=== PATIENT | female | born 1990 | race Caucasian/White ===

== ENCOUNTER → 2024-06-15 15:45 | Outpatient (REF) | payer OTHER, SELFPAY | LOC: HWRAD 15:45 | PROVIDERS: ATTENDING PHYSICIAN Physician Assistant Surgical; FAMILY PHYSICIAN Nurse Practitioner Adult Health | DX: J45.901 Unspecified asthma with (acute) exacerbation (principal) | CPT/HCPCS: 71046 ==

== ENCOUNTER → 2024-09-13 16:25 | Outpatient (REF) | payer OTHER, SELFPAY | LOC: HWRAD 16:25 | PROVIDERS: ATTENDING PHYSICIAN Pain Medicine Interventional Pain Medicine; FAMILY PHYSICIAN Nurse Practitioner Adult Health | DX: M54.50 Low back pain, unspecified (principal); Z98.1 Arthrodesis status; M54.9 Dorsalgia, unspecified | CPT/HCPCS: 72072; 72110 ==

== ENCOUNTER 2025-01-18 23:07 | Emergency (ER) | payer OTHER, SELFPAY ==
[2025-01-18 23:16] VITALS: BP 140/92
[2025-01-19 00:37] LABS: ALT (SGPT) 14 U/L (0-35); AST (SGOT) 23 U/L (14-36); Albumin 4.4 g/dl (3.5-5.0); Alkaline Phosphatase 39 U/L (38-126); Blood Urea Nitrogen 21 mg/dl (7-17); Calcium 9.5 mg/dl (8.4-10.2); Carbon Dioxide 27 mmol/L (22-30); Chloride 105 mmol/L (98-107); Glucose 95 mg/dl (70-99); Lipase 79 U/L (23-300); Potassium 3.4 mmol/L (3.5-5.1); Sodium 136 mmol/L (135-145); Total Protein 6.9 g/dl (6.3-8.2); eGFR > 60.00
[2025-01-19 00:43] LABS: Hematocrit 35.4 % (37.0-47.0); Hemoglobin 12.2 g/dL (12.0-16.0); Mean Corp Hgb Conc. 34.5 g/dL (33.0-37.0); Mean Corpuscular Volume 80.3 fL (81.0-99.0); Nucleated Red Blood Cells % 0 %; Platelet Count 249 10^3/uL (130-400); Red Cell Dist. Width 13.2 % (11.5-14.5)
[2025-01-19] MEDS: PROTONIX IV 40 MG IV (00:43)
[2025-01-19] MEDS: ZOFRAN 4 MG IV (00:43)
[2025-01-19] MEDS: NSS 1000 IV (00:43)
[2025-01-19] MEDS: TORADOL 15 MG IV (00:43)
--- NOTE | 2025-01-19 01:07 | ED.GENMED ---
History of Present Illness
General
Chief Complaint: Abdominal Pain
Time Seen by Provider: 01/19/25 00:09
History of Present Illness
History of Present Illness:
34-year-old female without significant past medical history presenting to the emergency department for upper abdominal pain. Patient notes that symptoms started this afternoon. Reports that pain has been waxing and waning. When she got home from
work, had an intense episode of pain, took some Tums with some slight relief, however then pain returned. Has had some gastric reflux in the past, however never to this extent. Denies chest pain. Denies any significant abdominal surgeries.
Denies fever. Denies any vomiting. Denies changes in stool. Denies fever. Denies eating any unusual foods prior to episode. Denies additional acute medical complaints
Past History
Past History
ED Past Medical History: None
ED Past Surgical History: Orthopedic and Other (Right sublingual cyst removal at age 16.)
Social History
Tobacco: Non-smoker
Alcohol: Occasional
Personal: Single
Employment: Student
Family History
Family History: Other (Noncontributory)
Phy Exam
Physical Exam
Physical Exam:
General: Well-appearing, no clinical signs of dehydration, nontoxic and in no acute distress
HEENT: protecting airway
Neck: appears supple
CV: Normal heart rate, regular rhythm
Resp: No accessory muscle use, no increased work of breathing, lungs clear to auscultation bilaterally
Abd: Soft and non-distended, tenderness to epigastric and right upper quadrant area without rebound or guarding
Extremities: No deformities, no swelling, no erythema, pulses and sensation intact
Neuro: alert, no focal neurologic deficit
: deferred
Rectal: deferred
Psych: Normal affect
Skin: Intact
Course
Orders/Labs/Results
Orders:
Orders
01/18/25 23:19
IV Insert/Care/Rem.- Treatment PRN
Complete Blood Count/With Diff Urgent
Comprehensive Metabolic Panel Urgent
Lipase Urgent
Urinalysis Reflex To Culture Urgent
Date Specimen was Collected: 01/18/25
Time Specimen was Collected: 23:20
01/19/25 00:33
0.9% Sodium Chloride 1000 ml [Nss] 1,000 ml IV BOLUS
Ketorolac [Toradol] 15 mg IV NOW STA
Ondansetron Injectable [Zofran] 4 mg IV NOW STA
Pantoprazole [Protonix IV] 40 mg IV NOW STA
US Abdomen Complete/Upper Urgent
Comment:
Reason For Exam: upper abdominal pain
01/19/25 01:58
Electrocardiogram (*1) Urgent
Reason for Study: Abdominal Pain
EKG- Treatment ONCE
Abnormal Lab Results
01/19/25
00:13
Hct 35.4 L %
(37.0-47.0)
MCV 80.3 L fL
(81.0-99.0)
Absolute Monos (auto) 0.7 H 10^3/uL
(0.1-0.6)
Monocytes % 9.4 H %
(1.7-9.3)
Potassium 3.4 L mmol/L
(3.5-5.1)
BUN 21 H mg/dl
(7-17)
01/19/25 00:13
01/19/25 00:13
Vital Signs
Initial and Last Documented VS:
Initial Vital Signs
Temp Pulse Resp BP Pulse Ox
98.9 F 70 20 140/92 99
01/18/25 23:16 01/18/25 23:16 01/18/25 23:16 01/18/25 23:16 01/18/25 23:16
Last Documented Vital Signs
Temp Pulse Resp BP Pulse Ox
98.9 F 70 20 140/92 99
01/18/25 23:16 01/18/25 23:16 01/18/25 23:16 01/18/25 23:16 01/19/25 01:10
MDM/Problems Addressed
MDM/Problems Addressed:
34-year-old female without significant past medical history presenting for upper abdominal pain. Vital signs on arrival are normal.
On exam patient resting comfortably, no acute distress. Mild generalized tenderness to upper abdomen without rebound or guarding. Differential considerations include GERD versus gastritis versus cholelithiasis versus cholecystitis. Patient
without cardiac risk factors, no chest pain, without present concern for ACS. Will obtain laboratory analysis and ultrasound imaging of the upper abdomen and treat with Zofran, pantoprazole, Toradol and reassess
02:15 - Patient reports improvement of her symptoms. Ultrasound without any acute abnormality and labs are unremarkable. Normal lipase, normal liver enzymes. Continue to suspect likely gastritis as etiology of patient's symptoms. EKG obtained,
nonischemic, again without concern for ACS. Ultimately stable for discharge with outpatient follow-up. Advise bland diet until symptoms resolve. Return precautions discussed and patient verbalized understanding
*Pulse Oximetry
SaO2: 99
Oxygen Mode of Delivery: Room air
Patient hypoxic: no
*EKG
Interpreted by ED Provider?: Yes
EKG Intrepretation Date: 01/19/25
EKG Intrepretation Time: 02:20
Interpretation: normal
Heart Rate: 51
Rate: normal
Rhythm: sinus
[place]: normal axis
Interval: normal interval
QRS Pattern: normal QRS
Ischemia: no ischemia
*Critical Care Note
Total Time (30-74mins, 75-104mins- exclusive of procedures): Not Applicable
ED Attending Note
-
Portions of this chart may have been created with voice recognition software.� Occasional wrong word or��sound alike� substitutions may have occurred due to the inherent limitations of voice recognition software.
Discharge Plan
Departure
Patient Disposition: Home (Routine Discharge)
Date of Disposition: 01/19/25
Time of Disposition: 02:19
Patient with high blood pressure during this ER visit?: No
Condition: Good
Discharge Problem:
Upper abdominal pain, Gastric reflux
Instructions: Gastritis (DC), [place] diet
Prescriptions:
No Action
amoxicillin-pot clavulanate 875 MG/125 MG tablet
1 tab PO Q12 Qty: 20 0RF
sumatriptan succinate [Imitrex] 100 MG tablet
100 mg PO ONCE PRN (Reason: headache) Qty: 20 0RF
Rx Instructions:
May repeat in 2 hours prn. Do not exceed 200 mg/24 hrs
Referrals:
Daly Bobo CRNP [Family Provider, General]
Activity Restrictions/Additional Instructions:
You were seen in the emergency department for upper abdominal pain
You were found to have reassuring laboratory analysis, EKG, upper abdominal ultrasound. We suspect that your symptoms are likely from gastric inflammation. We advise bland diet and Pepcid.
Please follow-up closely with your primary care physician.
Return to the emergency department for any worsening of your symptoms, or any development of chest pain, difficulty breathing, abdominal pain with persistent vomiting and inability to tolerate food or liquid by mouth (concern for dehydration),
weakness, headache or confusion, fever greater than 100.4, or any additional symptoms that are concerning to you.
Thank you for choosing [facility].
Interventions
Interventions:
*Risk Screen - Suicide Last Done: 01/18/25 23:16
*General Assessment Last Done: 01/18/25 23:16
*Neglect/Abuse Screening Last Done: 01/18/25 23:16
*ED- Fall Risk Assessment Last Done: 01/18/25 23:16
*ED COVID-19 Vaccine History Last Done: 01/18/25 23:16
*ED Influenza Vaccine History Last Done: 01/18/25 23:16
Discharge Date and Time
Print Language: FIJIAN
[2025-01-19 02:00] VITALS: BP 98/55
[2025-01-19 02:30] LABS: Urine Character Clear (Clear)
[2025-01-19 02:33] LABS: Urine Red Blood Cell 0-2 /HPF (0-2); Urine Squamous Cell 0-2 /LPF (Few); Urine White Cell 0-2 /HPF (0-5)
== END 2025-01-19 02:33 | disposition home or self-care (01) ==
LOC: EMR 23:07
PROVIDERS: EMERGENCY PHYSICIAN Student in an Organized Health Care Education/Training Program; FAMILY PHYSICIAN Nurse Practitioner Adult Health
DX: R10.10 Upper abdominal pain, unspecified (principal); K21.9 Gastro-esophageal reflux disease without esophagitis
CPT/HCPCS: 99284; 96374; 96375; 96361; 76700; 80053; 81003; 81015; 83690; 85025; 93005